=== PATIENT | female | born 1960 | race Asian ===

== ENCOUNTER 2017-12-03 11:50 | Emergency (ER) | payer OTHER ==
[2017-12-03 11:56] VITALS: BP 149/79; PULSE 67; TEMP 98.1; BMI 24.9
--- NOTE | 2017-12-03 12:29 | PDOC ---
History of Present Illness - General Chief Complaint: Injury Stated Complaint: HEAD INJURY ON THE JOB Time Seen by Provider: 12/03/17 12:04 History Source: Patient Exam Limitations: Clinical Condition - History of Present Illness Initial Comments: 12/03/17 12:28 Patient with no significant past medical history present with complain of slip and fall at work hitting the head with laceration to left eyebrow this morning. Patient reported mild headache and pain over area of laceration with mild dizziness. Denies loss of consciousness, nausea or vomiting. Denies any other symptoms Timing/Duration: 1-3 hours Past History - Past Medical History Allergies/Adverse Reactions: Allergies Allergy/AdvReac Type Severity Reaction Status Date / Time No Known Allergies Allergy Verified 12/03/17 11:56 Home Medications: Ambulatory Orders Mupirocin Ointment [Bactroban 2% Ointment -] 1 applic TP BID #1 tube 12/03/17 - Suicide/Smoking/Psychosocial Hx Smoking History: Never smoked Have you smoked in the past 12 months: No Information on smoking cessation initiated: No Hx Alcohol Use: No Drug/Substance Use Hx: No Review of Systems - Review of Systems Able to Perform ROS?: Yes Is the patient limited Vincentian proficient: No Constitutional: No: Symptoms Reported, See HPI, Chills, Diaphoresis, Fever, Loss of Appetite, Malaise, Night Sweats, Weakness, Weight Stable, Unintentional Wgt. Loss, Unexplained wgt Loss, Other HEENTM: No: Eye Pain, Blurred Vision, Tearing, Recent change in vision, Double Vision, Cataracts, Ear Pain, Ocular Prothesis, Ear Discharge, Nose Pain, Nose Congestion, Tinnitus, Nose Bleeding, Hearing Loss, Throat Pain, Throat Swelling , Mouth Pain, Dental Problems, Difficulty Swallowing, Mouth Swelling, Other Respiratory: No: Cough, Orthopnea, Shortness of Breath, SOB with Exertion, SOB at Rest, Stridor, Wheezing, Productive cough, Hemoptysis, Other Cardiac (ROS): No: Chest Pain, Edema, Irregular Heart Rate, Lightheadedness, Palpitations, Syncope, Chest Tightness, Other ABD/GI: No: Abdominal Distended, Abd. Pain w/ defecation, Blood Streaked Bowels , Constipated, Diarrhea, Difficulty Swallowing, Nausea, Poor Appetite, Poor Fluid Intake, Rectal Bleeding, Vomiting, Indigestion, Abdominal cramping, Tarry Stools, Other Musculoskeletal: Yes: Muscle Pain (left eyebrow) Integumentary: Yes: Symptoms Reported, See HPI, Other (laceration to left eyebrow). No: Bruising, Change in Color, Change in Hair/Nails, Dryness, Erythema, Flushing, Lesions, Lumps, Pallor, Pruritus, Rash, Sweating Neurological: Yes: Headache. No: Pre-Existing Deficit, Tingling, Weakness, Unsteady Gait All Other Systems: Reviewed and Negative *Physical Exam - Vital Signs Last Vital Signs Temp Pulse Resp BP Pulse Ox 98.1 F 67 16 149/79 100 12/03/17 11:53 12/03/17 11:53 12/03/17 11:53 12/03/17 11:53 12/03/17 11:53 - Physical Exam Comments: 12/03/17 12:31 GENERAL: Well developed, well nourished. Awake and alert. No acute distress. HEENT: Normocephalic, atraumatic. PERRLA, EOMI. No conjunctival pallor. Sclera are non- icteric. Moist mucous membranes. Oropharynx is clear. NECK: Supple. Full ROM. No JVD. Carotid pulses 2+ and symmetric, without bruits. No thyromegaly. No lymphadenopathy. CARDIOVASCULAR: Regular rate and rhythm. No murmurs, rubs, or gallops. Distal pulses are 2+ and symmetric. PULMONARY: No evidence of respiratory distress. Lungs clear to auscultation bilaterally. No wheezing, rales or rhonchi. ABDOMINAL: Soft. Non-tender. Non-distended. No rebound or guarding. No organomegaly. Normoactive bowel sounds. MUSCULOSKELETAL Normal range of motion at all joints. No bony deformities or tenderness. No CVA tenderness. EXTREMITIES: No cyanosis. No clubbing. No edema. No calf tenderness. SKIN: 2 cm superficial linear laceration to left eyebrow with mild swelling to area. NEUROLOGICAL: Alert, awake, appropriate. Cranial nerves 2-12 intact. No deficits to light touch and temperature in face, upper extremities and lower extremities. No motor deficits in the in face, upper extremities and lower extremities. Normoreflexic in the upper and lower extremities. Normal speech. Toes are down- going bilaterally. Gait is normal without ataxia. PSYCHIATRIC: Cooperative. Good eye contact. Appropriate mood and affect. General Appearance: Yes: Nourished, Appropriately Dressed. No: Apparent Distress Procedures - Laceration/Wound Repair Left Upper Eye Wound Length: to 2.5 cm Wound Explored: clean Wound's Depth, Shape: superficial, linear Irrigated w/ Saline: Yes Betadine Prep: Yes Amount of Anesthetic (ccs): 0 Wound Repaired With: Steri-strips, Dermabond Sterile Dressing Applied: Yes Splint Applied: No Sling Applied: No Progress: 12/03/17 12:33 2 cm superficial laceration to left eyebrow clean with Betadine. Wound washed with [id number] normal saline. Wound closed with Dermabond. Bacitracin applied to wound and Steri-Strips applied to wound. Patient tolerated procedure well ED Treatment Course - RADIOLOGY Radiology Studies Ordered: Category Date Time Status HEAD CT WITHOUT CONTRAST [CT] Stat CT Scan 12/03/17 12:22 Ordered Medical Decision Making - Medical Decision Making 12/03/17 12:31 Patient with no sig Past medical history presenting for evaluation of headache and laceration to left eyebrow status post fall at work today hitting head. Exam shows 2 cm laceration to left eyebrow with mild swelling to area. All other exam unremarkable with normal neuro exam. Eyebrow laceration repaired with Dermabond. CT without contrast of head ordered to rule out any intracranial bleeding. 12/03/17 13:02 CT of the head shows no evidence of intracranial bleeding or pathology. Patient stable on home discharge with strict follow-up if worsening symptoms *DC/Admit/Observation/Transfer Diagnosis at time of Disposition: Laceration of eyebrow Qualifiers: Encounter type: initial encounter Laterality: left Qualified Code(s): S01.112A - Laceration without foreign body of left eyelid and periocular area, initial encounter Head contusion Qualifiers: Encounter type: initial encounter Contusion of head detail: eyelid Laterality: left Qualified Code(s): S00.12XA - Contusion of left eyelid and periocular area , initial encounter - Discharge Dispostion Disposition: HOME Condition at time of disposition: Stable Decision to Admit order: No - Prescriptions Prescriptions: Mupirocin Ointment [Bactroban 2% Ointment -] 1 applic TP BID #1 tube - Referrals Referrals: Tete Navarro [Primary Care Provider] - - Patient Instructions Printed Discharge Instructions: DI for Closed Head Injury Additional Instructions: CAT scan of the head shows no bleeding in the head. Take Motrin as needed for pain. Put prescribed medication on wound twice a day as needed onto healed. Come back to emergency room if worsening headache with nausea and vomiting or severe dizziness - Post Discharge Activity Forms/Work/School Notes: Back to Work
== END 2017-12-03 13:12 | disposition home or self-care (01) ==
LOC: JERFT 11:50
PROC: 0HQ1XZZ Repair Face Skin, External Approach (ICD-10-PCS; principal; 2017-12-03)
DX: S01.112A Laceration without foreign body of left eyelid and periocular area, initial encounter (principal); W22.8XXA Striking against or struck by other objects, initial encounter; Y93.89 Activity, other specified; Y92.128 Other place in nursing home as the place of occurrence of the external cause; Y99.0 Civilian activity done for income or pay
CPT/HCPCS: 70450-TC; 99281-25

== ENCOUNTER 2024-01-30 00:59 | Emergency (ER) | payer OTHER ==
[2024-01-30 01:11] VITALS: BMI 23.3
[2024-01-30 01:40] VITALS: TEMP 98.2
[2024-01-30 02:33] LABS: BASO % 0.7 % (0-2.0); EOS % 1.4 % (0-4.5); HEMATOCRIT 42.6 % (32.4-45.2); HEMOGLOBIN 14.1 GM/dL (10.7-15.3); LYMPH % 31.2 % (8-40); MCH 30.1 pg (25.7-33.7); MCHC 33.1 g/dl (32.0-36.0); MEAN CELL VOLUME 90.9 fl (80-96); MEAN PLT VOLUME 6.9 fl (7.5-11.1); MONO % 9.5 % (3.8-10.2); NEUT % 57.2 % (42.8-82.8); PLATELET COUNT 208 10^3/uL (134-434); RBC 4.69 M/mm3 (3.60-5.2); RDW 13.3 % (11.6-15.6)
[2024-01-30 02:52] LABS: POTASSIUM 3.7 mmol/L (3.5-5.1)
[2024-01-30 02:53] LABS: CALCIUM 9.1 mg/dL (8.5-10.1)
[2024-01-30 02:54] LABS: ALBUMIN 3.3 g/dl (3.4-5.0); MAGNESIUM 2.2 mg/dL (1.8-2.4)
[2024-01-30 02:57] LABS: CREATININE 0.7 mg/dL (0.55-1.3)
[2024-01-30 02:59] LABS: BILIRUBIN,TOTAL 0.3 mg/dL (0.2-1); TOT PROT 6.8 g/dl (6.4-8.2)
[2024-01-30 05:49] VITALS: BP 134/70; PULSE 69; RESP 16
== END 2024-01-30 05:50 | disposition home or self-care (01) ==
LOC: JER 00:59
DX: R07.89 Other chest pain (principal); R00.2 Palpitations
CPT/HCPCS: 36415; 71046-TC-FY; 80053; 83735; 84484; 85025; 93005; 93010; 99285-25